=== PATIENT | female | born 1980 | race African-American/Black ===

== ENCOUNTER 2017-07-14 21:55 | Emergency (ER) | payer MEDICAID ==
[2017-07-15] MEDS ORDERED: HYDROCODONE/ACETAMINOPHEN 5-325 MG 6 TAB/DSPK PO PRN (01:36)
[2017-07-15] MEDS ORDERED: PREDNISONE 20 MG TABLET PO ONE (01:37)
[2017-07-15] MEDS ORDERED: CEPHALEXIN 500 MG CAPSULE PO ONE (01:37)
--- NOTE | 2017-07-15 01:41 | ER Document Report ---
ED General - General Chief Complaint: Insect Bite Stated Complaint: INSECT BITE Time Seen by Provider: 07/15/17 01:28 Notes: Patient is a 37-year-old female who presents with complaint of swelling and pain in her foot that radiates up her leg. Patient says yesterday she thinks something bit her on the foot when she was in bed. She said she had a severe pain between her second and third toes on her left foot. Over the course of the day the pain started gradually work its way up her leg and she developed some swelling in her foot that is now increasing up her leg. No fevers. No weakness. No recent infections. No other complaints at this time. No trauma. Patient is not diabetic. TRAVEL OUTSIDE OF THE [place] IN LAST 30 DAYS: No - Related Data Allergies/Adverse Reactions: No Known Allergies Allergy (Verified 07/14/17 22:24) Past Medical History - Social History Smoking Status: Unknown if Ever Smoked Frequency of alcohol use: None Drug Abuse: None Family History: Reviewed & Not Pertinent - Past Medical History Cardiac Medical History: Reports: Hx Hypertension Renal/ Medical History: Denies: Hx Peritoneal Dialysis Past Surgical History: Reports: Hx Orthopedic Surgery, Hx Tubal Ligation - Immunizations Hx Diphtheria, Pertussis, Tetanus Vaccination: - unknown Review of Systems - Review of Systems Notes: My Normal Review Basic REVIEW OF SYSTEMS: CONSTITUTIONAL : Denies fever, chills, or sweats. Denies recent illness. Cardiac: No chest pain Lungs: No shortness of breath. MUSCULOSKELETAL: Foot and leg pain and swelling.. SKIN: Denies rash or skin lesions. NEUROLOGICAL: Denies altered mental status or loss of consciousness. Denies headache. Denies weakness or paralysis or loss of use of either side. Denies problems with gait or speech. Denies sensory or motor loss. PSYCHIATRIC: Denies anxiety or stress or depression. ALL OTHER SYSTEMS REVIEWED AND NEGATIVE. Physical Exam - Vital signs Vitals: Temp Pulse Resp BP Pulse Ox 97.9 F 59 L 16 147/86 H 100 07/14/17 22:24 07/14/17 22:24 07/14/17 22:24 07/14/17 22:24 07/14/17 22:24 - Notes Notes: General Appearance: Well nourished, alert, cooperative, no acute distress, moderate obvious discomfort. Vitals: reviewed, See vital signs table. Extremities: strength 5/5 in all extremities, good pulses in all extremities, palpation of the dorsum of the left foot and also between the second and third toes. I do not see any redness or increasing warmth in the lower extremity or toes. She does have some pedal edema. I do not see an actual bite lizabeth., no edema. Skin: warm, dry, appropriate color, no rash Neuro: speech clear, oriented x 3, normal affect, responds appropriately to questions. Course - Re-evaluation Re-evalutation: 07/15/17 01:45 I informed the patient that I am not exactly sure of the cause of her pain/ edema. I told I do not suspect a DVT being that the pain initially was just between her second and third toes of her foot. This is not consistent all with the presentation of DVT. Since then she has had pain is work its way up her leg. She does have some edema in the foot itself. Not much edema in the leg itself. I will place her on prednisone in case this is due to an allergic reaction. We will also place her on Keflex. Right now I do not see evidence that this is necessarily infection; however, she does have some ascending pain in edema and therefore infection is still a possibility. Patient informed that she should return to the ER in 24 hours if her symptoms are not improving with prescribed medications. Patient encouraged to return to ER immediately if she has worsening of her symptoms, any redness or warmth to the leg, or she feels unwell. Patient agrees with plan and will be discharged home. Dictation of this chart was performed using voice recognition software; therefore, there may be some unintended grammatical errors. - Vital Signs Vital signs: Temp Pulse Resp BP Pulse Ox 97.9 F 59 L 16 147/86 H 100 07/14/17 22:24 07/14/17 22:24 07/14/17 22:24 07/14/17 22:24 07/14/17 22:24 Discharge - Discharge Clinical Impression: Foot pain, left, Foot swelling Condition: Good Disposition: HOME, SELF-CARE Instructions: Oral Narcotic Medication ([facility]) Additional Instructions: Please take the medications as prescribed. please return to the ER in 24 hours if you are not having improvement of your symptoms, if you have fevers, any redness or warmth to the leg, or if you feel that your symptoms are worsening. Prescriptions: Cephalexin Monohydrate [Keflex 500 mg Capsule] 500 mg PO QID #28 capsule Prednisone 10 mg PO ASDIR #42 tablet Forms: Return to Work
[2017-07-15 02:24] VITALS: BP 140/80
== END 2017-07-15 02:22 | disposition home or self-care (01) ==
LOC: ER 21:55
DX: M79.672 Pain in left foot (principal); M79.89 Other specified soft tissue disorders; I10 Essential (primary) hypertension
CPT/HCPCS: 99281; J7512

== ENCOUNTER → 2017-09-21 | Outpatient (CLI) | payer MEDICAID ==
[2017-09-21 15:02] LABS: CHLAM PCR NOT DETECTED (NOT DETECT)
== END ==
LOC: LAB 13:13
PROVIDERS: ATTEND Nurse Practitioner Acute Care
DX: N89.8 Other specified noninflammatory disorders of vagina (principal)
CPT/HCPCS: 87210; 87491; 87591

== ENCOUNTER 2017-12-11 13:48 | Emergency (ER) | payer MEDICAID ==
--- NOTE | 2017-12-11 15:48 | ER Document Report ---
HPI - HPI Pain Level: 4 Notes: Patient is a 37-year-old female with no significant past medical history presents ED complaining of left knee pain 3-4 days w. no known injury. Patient states that on occasion it feels like her knee wants to give out on her does not feel stable. Patient states that most of her pain is along the midline and underneath her patella. Patient states that she stands for long periods of time at work which does not help with her symptoms. Patient states the pain does not radiate and is described as a sharp/ache. She has not noticed any obvious redness or swelling. She has not noticed excessive warmth to the area. She has not been sick recently. Patient denies any drug allergies. Pt had one episode of dizziness at work 2 days ago, but nothing since then. No other concerns or complaints at this time. Denies any headache , fever, head injury, neck pain, URI, sore throat, chest pain, palpitations, syncope, cough, shortness of breath, wheeze, dyspnea, abdominal pain, nausea/ vomiting/diarrhea, urinary retention, dysuria, hematuria, loss of control of bowel or bladder, numbness/tingling, saddle anesthesia, muscle paralysis/ weakness, or rash. - ROS Notes: REVIEW OF SYSTEMS: CONSTITUTIONAL : Denies fever, chills, or sweats. Denies recent illness. EENT: Denies eye, ear, throat, or mouth pain or symptoms. Denies nasal or sinus congestion or discharge. Denies throat, tongue, or mouth swelling or difficulty swallowing. CARDIOVASCULAR: Denies chest pain. Denies palpitations or racing or irregular heart beat. Denies ankle edema. RESPIRATORY: Denies cough, cold, or chest congestion. Denies shortness of breath, difficulty breathing, or wheezing. GASTROINTESTINAL: Denies abdominal pain or distention. Denies nausea, vomiting , or diarrhea. Denies blood in vomitus, stools, or per rectum. Denies black, tarry stools. Denies constipation. GENITOURINARY: Denies difficulty urinating, painful urination, burning, frequency, blood in urine, or discharge. MUSCULOSKELETAL: see hpi SKIN: Denies rash, lesions or sores. NEUROLOGICAL: Denies confusion or altered mental status. Denies passing out or loss of consciousness. Denies dizziness or lightheadedness. Denies headache. Denies weakness or paralysis or loss of use of either side. Denies problems with gait or speech. Denies sensory loss, numbness, or tingling. Denies seizures. ALL OTHER SYSTEMS REVIEWED AND NEGATIVE. Dictation was performed using [employer] voice recognition software - REPRODUCTIVE Reproductive: DENIES: : Past Medical History - Social History Smoking Status: Never Smoker Family History: Reviewed & Not Pertinent - Past Medical History Cardiac Medical History: Reports: Hx Hypertension Renal/ Medical History: Denies: Hx Peritoneal Dialysis Past Surgical History: Reports: Hx Orthopedic Surgery, Hx Tubal Ligation - Immunizations Hx Diphtheria, Pertussis, Tetanus Vaccination: - unknown Vertical Provider Document - CONSTITUTIONAL Agree With Documented VS: Yes Notes: PHYSICAL EXAMINATION: GENERAL: Well-appearing, well-nourished and in no acute distress. A&Ox4 Musculoskeletal: Left knee: + small/mild jt effusion. no obvious erythema, warmth, or swelling noted. FROM to passive/active. Strength 5+/5. Sheeba negative. + tenderness to the joint line b/l. + tenderness with patellar grind test. Ligaments feel stable, but limited exam due to pt resistance. N/v intact distal. Extremities: No cyanosis, clubbing, or edema b/l. Peripheral pulses 2+. Capillary refill less than 3 seconds. NEUROLOGICAL: Normal speech, limping gait. Normal sensory, motor exams PSYCH: Normal mood, normal affect. SKIN: Warm, Dry, normal turgor, no rashes or lesions noted. - INFECTION CONTROL TRAVEL OUTSIDE OF THE [place] IN LAST 30 DAYS: No - RESPIRATORY O2 Sat by Pulse Oximetry: 99 Course - Re-evaluation Re-evalutation: 12/11/17 16:30 Patient is an afebrile, well-hydrated, 37-year-old female who presents to the ED with left knee pain, suspect inflammatory versus internal knee complication. Vitals are stable. PE is otherwise unremarkable for any neurovascular compress, obvious tendon/ligament rupture, obvious fracture/ dislocation, septic joint. X-ray was unremarkable for any acute pathology, but did show OA which correlates with exam and a jt effusion. Knee immobilizer provided low as well as crutches. She may use a knee immobilizer as needed and it may help her at work when she stands for long periods of time. Patient advised that she needs to bend her knees and walk around and exercise so that her blood pressure does not drop when she standing for long periods of time. I will send her home with a prescription for naproxen that she may use as needed. Advised recheck with orthopedics for further evaluation and management. Recheck with your PCM in 3-5 days as well. Return to the ED with any worsening/ concerning symptoms otherwise as reviewed in discharge. Patient is in agreement. - Vital Signs Vital signs: Temp Pulse Resp BP Pulse Ox 98.1 F 80 18 143/85 H 99 12/11/17 14:33 12/11/17 14:33 12/11/17 14:33 12/11/17 14:33 12/11/17 14:33 Discharge - Discharge Clinical Impression: Left knee pain Qualifiers: Chronicity: acute Qualified Code(s): M25.562 - Pain in left knee Condition: Stable Disposition: HOME, SELF-CARE Instructions: Use of Crutches ([facility]), Ice & Elevation ([facility]), Suspected Internal Knee Injury ([facility]), Knee Immobilizing Splint ([facility]) Additional Instructions: Rest, Ice, Compression, Elevation Use crutches/splint as directed Tylenol/ibuprofen as needed Light stretches daily Strength exercises as able Moist heat and massage may help F/u with your PCP in 3-5 days for a recheck Consider consult(s) with Orthopedics/physical therapy for ongoing/worsening symptoms Return to the ED with any worsening symptoms and/or development of fever, headache, chest pain, palpitations, syncope, shortness of breath, trouble breathing, abdominal pain, n/v/d, muscle weakness/paralysis, numbness/tingling, swelling, redness, or other worsening symptoms that are concerning to you. Prescriptions: Naproxen 500 mg PO BID PRN #30 tablet PRN Reason: Forms: Elevated Blood Pressure, Return to Work Referrals: [facility] ([facility]) [Provider Group] - Follow up in 3-5 days
--- NOTE | 2017-12-11 16:07 | RADIOLOGY REPORT (SQ) ---
EXAM DESCRIPTION: KNEE LEFT 4 VIEW COMPLETED DATE/TIME: 12/11/2017 3:52 pm REASON FOR STUDY: left knee pain COMPARISON: None. NUMBER OF VIEWS: Four views. TECHNIQUE: AP, lateral, and both oblique radiographic images acquired of the left knee. LIMITATIONS: None. FINDINGS: MINERALIZATION: Normal. BONES: No acute fracture or dislocation. No worrisome bone lesions. JOINT: Small suprapatellar knee joint effusion. Very mild patellofemoral and medial compartment join t space narrowing SOFT TISSUES: No soft tissue swelling. No radio-opaque foreign body. OTHER: No other significant finding. IMPRESSION: Knee joint effusion Patellofemoral and medial compartment joint space narrowing No acute fracture TECHNICAL DOCUMENTATION: JOB ID: [id number] [employer]- All Rights Reserved
[2017-12-11 16:44] VITALS: BP 141/88
== END 2017-12-11 16:44 | disposition home or self-care (01) ==
LOC: ER 13:48
DX: M25.562 Pain in left knee (principal); R42 Dizziness and giddiness; I10 Essential (primary) hypertension; Z98.51 Tubal ligation status
CPT/HCPCS: 99283; 73562; L1830

== ENCOUNTER 2017-12-16 22:19 | Emergency (ER) | payer MEDICAID ==
[2017-12-17 00:25] VITALS: BP 140/92
--- NOTE | 2017-12-17 01:13 | RADIOLOGY REPORT (SQ) ---
EXAM DESCRIPTION: SHOULDER RIGHT 2 OR MORE VIEWS CLINICAL HISTORY: pain COMPARISON: None. FINDINGS: 3 views of the right shoulder. No acute fracture or dislocation. Normal osseous mineralization. Calcifications adjacent to the greater tubercle of the humerus. This could be seen with calcific tendinitis/bursitis. Degenerative change of the acromioclavicular joint. No fracture visualized ribs. No pneumothorax in the visualized right lung. IMPRESSION: 1. No acute fracture or dislocation. 2. Possible calcific tendinitis/bursitis.
--- NOTE | 2017-12-17 01:41 | ER Document Report ---
ED Extremity Problem, Lower - General Chief Complaint: Knee Pain Stated Complaint: LEFT KNEE AND RIGHT ARM PAIN Time Seen by Provider: 12/17/17 01:19 Mode of Arrival: Ambulatory Information source: Patient TRAVEL OUTSIDE OF THE [place] IN LAST 30 DAYS: No - HPI Patient complains to provider of: Pain Location: Knee Occurred: Other - chronic Onset/Duration: Gradual Quality of pain: Achy Severity: Moderate Recent injury: No Notes: Patient arrives with complaints of right shoulder and left knee pain. 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 She was seen for her left knee pain within the last few weeks. She had x-rays here showing arthritis. She states that the knee brace that she was given seems to help some but she continues to have some pain. Over the last week she started having pain in the right shoulder. There is no traumatic injury. No fever, no redness, no numbness, tingling, weakness. She denies any chest pain or shortness of breath. No abdominal pain. No nausea, vomiting, diarrhea. No rashes. She denies any other complaints at this time. Pain is worse with movement, and better with rest. - Related Data Allergies/Adverse Reactions: No Known Allergies Allergy (Verified 12/17/17 01:14) Past Medical History - Social History Smoking Status: Current Every Day Smoker Frequency of alcohol use: None Drug Abuse: None Family History: Reviewed & Not Pertinent Patient has suicidal ideation: No Patient has homicidal ideation: No - Past Medical History Cardiac Medical History: Reports: Hx Hypertension Renal/ Medical History: Denies: Hx Peritoneal Dialysis Past Surgical History: Reports: Hx Orthopedic Surgery, Hx Tubal Ligation - Immunizations Hx Diphtheria, Pertussis, Tetanus Vaccination: - unknown Review of Systems - Review of Systems -: Yes All other systems reviewed and negative Physical Exam - Vital signs Vitals: Temp Pulse Resp BP Pulse Ox 97.7 F 73 20 140/92 H 100 12/17/17 00:24 12/17/17 00:24 12/17/17 00:24 12/17/17 00:12/17/17 00:24 - Notes Notes: GENERAL: alert, cooperative, nontoxic, no distress. HEAD: normocephalic, atraumatic EYES: conjunctiva pink without discharge, no external redness or swelling. EARS: no external swelling, no external redness NOSE: atraumatic, no external swelling MOUTH/THROAT: mucous membranes moist and pink NECK: soft, supple, full range of motion, no meningismus. CHEST: no distress, lungs clear and equal throughout. No wheezing, rales, rhonchi. CARDIAC: regular rate and rhythm, no murmur, normal capillary refill, normal pulses. BACK: full range of motion, no CVA tenderness. EXTREMITIES: Full range of motion of the left knee with tenderness to palpation of the anterior aspect of the knee. Slight joint effusion noted. No redness or increased heat to touch. No obvious ligament instability. Normal neurovascular exam distally with soft compartments. Ankle and hip are unremarkable. Tenderness to palpation of the right anterior shoulder with the biceps tendon is noted. Full range of motion. Normal strength and sensation with normal pulse distally. No redness or swelling. Elbow exam is normal. NEURO: alert and oriented 3, no focal deficits, full range of motion of all extremities. PYSCH: appropriate mood, affect. Patient is cooperative. SKIN: pink, warm, dry, no rash. Course - Re-evaluation Re-evalutation: 12/17/17 01:38 Patient is nontoxic appearing with stable vitals. The patient arrives with chronic knee and shoulder pain without injury. Her knee was x-rayed during her last visit a few weeks ago showing degenerative changes. X-rays of the right shoulder tonight show bursitis versus calcific tendinitis. Neurovascular she is intact. There is no signs of infection. Patient has a knee immobilizer which she wears and states that this makes her knee feel better. She is noted to have a small knee effusion at this time with no redness or signs of infection. Patient will be discharged home with instructions to wear her knee immobilizer as needed. Rest, ice, elevate her painful areas. She will be given a prescription for Naprosyn as well as Ultram and a referral to orthopedics. Instructed to follow-up sooner for increasing pain, high fever, numbness, tingling, weakness, any further concerns. The patient's emergency department workup and current diagnosis were explained to the patient and or family. Follow-up instructions were provided. Medications if prescribed were discussed. Instructions for when to return to the emergency department including specific worrisome symptoms were discussed with the patient and/or family. The patient is noted to have elevated blood pressure during today's emergency department visit. The patient was informed of this finding. The patient was instructed that this may be related to pre-hypertension and requires further evaluation with a primary care provider. The patient has no hypertensive symptoms at this time. - Vital Signs Vital signs: Temp Pulse Resp BP Pulse Ox 97.7 F 73 20 140/92 H 100 12/17/17 00:24 12/17/17 00:24 12/17/17 00:24 12/17/17 00:12/17/17 00:24 - Diagnostic Test Radiology reviewed: Image reviewed, Reports reviewed - Right shoulder with bursitis versus calcific tendinitis. No acute findings. Discharge - Discharge Clinical Impression: Calcific tendinitis Degenerative joint disease Qualifiers: Osteoarthritis location: knee Osteoarthritis type: unspecified Laterality: left Qualified Code(s): M17.12 - Unilateral primary osteoarthritis, left knee Condition: Stable Disposition: HOME, SELF-CARE Instructions: Ice & Elevation ([facility]), Oral Narcotic Medication ([facility]), Arthritis ([facility]), Tendonitis ([facility]) Additional Instructions: Take medications as prescribed. Wear your knee brace as needed. Rest, ice, elevate your sore areas. Follow-up with orthopedics at the next available appointment. Follow-up sooner for increased pain, fever, numbness, tingling, weakness, redness, any further concerns. Your blood pressure was elevated during today's visit. Have this rechecked with your doctor. The medication you were prescribed today may cause drowsiness. Do not drive or operate heavy machinery while taking this medication. Prescriptions: Naproxen [Naprosyn] 500 mg PO BID #20 tablet Tramadol HCl 50 mg PO TID PRN #10 tablet PRN Reason: Forms: Elevated Blood Pressure, Smoking Cessation Education, Return to Work Referrals: LUCINDA CULVER MD [ACTIVE STAFF] - Follow up as needed
== END 2017-12-17 01:47 | disposition home or self-care (01) ==
LOC: ER 22:19
DX: M65.20 Calcific tendinitis, unspecified site (principal); M17.12 Unilateral primary osteoarthritis, left knee; M25.562 Pain in left knee; M79.601 Pain in right arm; M25.511 Pain in right shoulder; F17.200 Nicotine dependence, unspecified, uncomplicated
CPT/HCPCS: 99283

== ENCOUNTER 2018-01-13 20:17 | Emergency (ER) | payer MEDICAID ==
[2018-01-14] MEDS ORDERED: DEXAMETHASONE SOD PHOS INJ 10 MG/1 ML VIAL IM ONE (01:42)
[2018-01-14] MEDS ORDERED: KETOROLAC TROMETHAMINE 60 MG/2 ML SDV IM ONE (01:42)
[2018-01-14] MEDS ORDERED: LIDOCAINE 5% (700 MG) TRANSDERMAL ADH..PATCH TP ONE (01:42)
[2018-01-14] MEDS ORDERED: CYCLOBENZAPRINE HCL 10 MG TABLET PO ONE (01:42)
--- NOTE | 2018-01-14 01:51 | ER Document Report ---
ED Neck/Back Problem - General Chief Complaint: Back Pain Stated Complaint: BACK PAIN, PAIN IN BOTH HANDS Time Seen by Provider: 01/14/18 01:09 Mode of Arrival: Ambulatory Information source: Patient Notes: 37-year-old female presented ED for complaint of back pain off and on for week. She states it was worse today. She states she took Aleve Thursday with no relief and did not take any pain medicine today she denies any radiation of pain down the legs. TRAVEL OUTSIDE OF THE [place] IN LAST 30 DAYS: No - HPI Patient complains to provider of: Lower back Onset: Other - Chronic with exacerbation of couple weeks ago off and on Onset: Chronic Timing: Waxing and waning Quality of pain: Sharp Severity: Moderate Pain Level: 3 Context: Lifting Recent injury: No Associated symptoms: Like prior neck/back pain, Lower back pain. denies: Chest pain, Abdominal pain, Chills, Constipation, Fever, Incontinence, Motor loss, Numbness/tingling, Radiation to arm, Radiation to chest, Radiation to leg, Sensory loss, Sweaty, Unable to urinate Exacerbated by: Movement of trunk Relieved by: Nothing Similar symptoms previously: Yes Recently seen / treated by doctor: No - Related Data Allergies/Adverse Reactions: No Known Allergies Allergy (Verified 12/17/17 01:14) Past Medical History - General Information source: Patient - Social History Smoking Status: Current Every Day Smoker Cigarette use (# per day): Yes - Half pack per day Chew tobacco use (# tins/day): No Smoking Education Provided: Yes - Woman is Frequency of alcohol use: Social Drug Abuse: None Occupation: Chief complaint Lives with: Family Family History: Arthritis, CVA, Hypertension, Malignancy. denies: CAD, COPD, DM , Hyperlipidemia, Thyroid Disfunction Patient has suicidal ideation: No Patient has homicidal ideation: No - Past Medical History Cardiac Medical History: Reports: Hx Hypertension Pulmonary Medical History: Reports: None EENT Medical History: Reports: None Neurological Medical History: Reports: None Endocrine Medical History: Reports: None Renal/ Medical History: Reports: None Malignancy Medical History: Reports: None GI Medical History: Reports: None Musculoskeltal Medical History: Reports Hx Arthritis, Reports Hx Musculoskeletal Deformity Skin Medical History: Reports None Psychiatric Medical History: Reports: None Traumatic Medical History: Reports: None Infectious Medical History: Reports: None Past Surgical History: Reports: Hx Orthopedic Surgery - feet, Hx Tubal Ligation - Immunizations Hx Diphtheria, Pertussis, Tetanus Vaccination: - unknown Review of Systems - Review of Systems Notes: Constitutional: [PRESENT: as per HPI. ABSENT: chills, fever(s), headache(s), weight gain, weight loss] Eyes: [ABSENT: visual disturbances] Ears: [ABSENT: hearing changes] Cardiovascular: [ABSENT: chest pain, dyspnea on exertion, edema, orthropnea, palpitations] Respiratory: [ABSENT: cough, hemoptysis] Gastrointestinal: [ABSENT: abdominal pain, constipation, diarrhea, hematemesis, hematochezia, nausea, vomiting] Genitourinary: [ABSENT: dysuria, hematuria] Musculoskeletal: Back pain no radiation down the legs or up back. Patient is the same as her chronic pain. She states that she has got worse so she came to the emergency room Integumentary: [ABSENT: rash, wounds] Neurological: [ABSENT: abnormal gait, abnormal speech, confusion, dizziness, focal weakness, syncope] Psychiatric: [ABSENT: anxiety, depression, homicidal ideation, suicidal ideation ] Endocrine: [ABSENT: cold intolerance, heat intolerance, menstrual abnormalities , polydipsia, polyuria] Hematologic/Lymphatic: [ABSENT: easy bleeding, easy bruising, lymphadenopathy] Physical Exam - Vital signs Vitals: Temp Pulse Resp BP Pulse Ox 98.6 F 79 20 145/93 H 100 01/13/18 20:31 18 20:31 01/13/18 20:31 18 20:31 18 20:31 - Notes Notes: PHYSICAL EXAMINATION: GENERAL: Well-appearing, well-nourished and in no acute distress. HEAD: Atraumatic, normocephalic. EYES: Pupils equal round and reactive to light, extraocular movements intact, conjunctiva are normal. ENT: Nares patent, oropharynx clear without exudates. Moist mucous membranes. NECK: Normal range of motion, supple without lymphadenopathy LUNGS: Breath sounds clear to auscultation bilaterally and equal. No wheezes rales or rhonchi. HEART: Regular rate and rhythm without murmurs ABDOMEN: Soft, nontender, nondistended abdomen. No guarding, no rebound. No masses appreciated. Female : deferred Musculoskeletal: Normal range of motion, no pitting or edema. No cyanosis. Patient had pain to her lower back bilaterally NEUROLOGICAL: Cranial nerves grossly intact. Normal speech, normal gait. Normal sensory, motor exams PSYCH: Normal mood, normal affect. SKIN: Warm, Dry, normal turgor, no rashes or lesions noted. Course - Re-evaluation Re-evalutation: 01/14/18 09:17 Patient denies any signs or symptoms of cauda equina, patient denied any loss of control of bowel bladder, loss control the lower extremities, any saddle anesthesia, or any loss of sensation to the legs. Patient denied any signs or symptoms of sciatica. She states it was just in her lower back on both sides. She denied any vertebral tenderness. Patient denied any injuries. - Vital Signs Vital signs: Temp Pulse Resp BP Pulse Ox 98.4 F 76 20 140/88 H 100 01/14/18 02:03 01/14/18 02:03 01/14/18 02:03 01/14/18 02:03 01/14/18 02:03 Discharge - Discharge Clinical Impression: Low back pain Qualifiers: Chronicity: chronic Back pain laterality: bilateral Sciatica presence: without sciatica Qualified Code(s): M54.5 - Low back pain; G89.29 - Other chronic pain; G89.29 - Other chronic pain Condition: Stable Disposition: HOME, SELF-CARE Additional Instructions: LOW BACK PAIN: Three out of every four people will have an episode of disabling back pain during their lifetime. Most commonly the pain is due to straining of the muscles and ligaments in the low back. Usual treatment includes: (1) Rest on a firm surface. Avoid lying on your stomach. (2) Ice pack the painful area. After a few days, gentle heat may be used intermittently to relax the area, or ice packs can be continued. (3) Medication may be needed -- muscle relaxers and antiinflammatory medicines are commonly used. (4) As the back improves, exercises are prescribed to strengthen the back and abdominal muscles. Your doctor will advise you on the proper care for your back at each stage in your recovery. You may be better in a few days -- or healing may take several weeks. If new symptoms of a "herniated disc" (radiation of pain, numbness, or tingling down the back of the leg or weakness in the leg) occur, you should be re-examined. Further testing may be necessary. Toradol Injection You have been given an injection of ketorolac tromethamine (Toradol). This is an excellent, safe drug for pain control. It also has potent antiinflammatory action. You should have significant pain relief within about one hour. Toradol is not addicting and is non-sedating. It does not interfere with driving or work. Call or return if you develop itching, hives, shortness of breath, or rash. Stretching Exercises for the Back The physician has recommended that you begin stretching exercises for your back. These are often used even while the back is painful. However, you should notify the physician if the activities seem to increase your pain. PELVIC TILT: Lie flat on your back with knees bent. Tighten your stomach and buttock muscles so it flattens your lower back against the floor. Hold 10 seconds. Repeat 10 times, twice daily. KNEE RAISE: Lying on the back with knees bent, raise one knee to your chest, then the other. Hold both knees against the chest 10 seconds, then lower one knee at a time. Repeat 10 times, twice daily. PARTIAL TRUNK RAISE: Lie face down, arms at your sides. Keeping your waist on the floor, use your arms raise your chest up. Support yourself on your elbows for 30 seconds. Repeat twice daily, increasing the time to two minutes as you recover. STEROID MEDICATION: You have been given an injection of medicine of the cortisone/steroid class. This medication is used to control inflammation or allergy. It is often continued as a pill for a short period of time, until the acute process subsides. There are usually no side effects from short-term use of cortisone-like medications. Some persons feel an increased sense of well-being and are not sleepy at bedtime. Long-term use of cortisone medications is best avoided, unless required for a severe condition. If your condition does not remit, or relapses after the course of corticosteroid medication, you should consult your physician. MUSCLE RELAXERS: Muscle relaxing medications are usually prescribed for acute muscle spasm or injury to the neck and back. They are often combined with antiinflammatory pain medication for increased relief. You may stop the muscle relaxer when the pain and stiffness have improved. Start the medication again if spasms recur. Muscle relaxers may cause drowsiness, especially with the first dose. Do not operate machinery or drive while under the effects of the medication. Most muscle relaxers last up to 24 hours. Do not combine the medication with alcohol. ICE PACKS: Apply ice packs frequently against the painful area. Many different schedules are recommended, such as "20 minutes on, 20 minutes off" or "one hour ice, two hours rest." If you need to work, you may need to go longer between ice treatments. You should plan to have the area ice packed AT LEAST one fourth of the time. The ice should be applied over the wrap, tape, or splint, or over a layer of cloth -- not directly against the skin. Some ice bags have a built-in cloth and can be put directly on the skin. WARM PACKS: After approximately two days, apply gentle heat (such as a heating pad or hot water bottle) for about 20 to 30 minutes about every two hours -- at least four times daily. Warmth and elevation will help you make a more rapid recovery , and will ease the pain considerably. Do not use HOT heat, and never apply heat for longer than 30 minutes. The continuous heat can invisibly damage skin and muscles -- even when no burn is seen on the surface. Damaged muscles can make you MORE sore. You have also been treated with a Lidoderm patch for your pain. Lidoderm patch is lidocaine. You can use [id number] Aspercreme lidocaine. This lidocaine patch needs to be removed after 12 hours. Then you can use the Aspercreme starting 12 hours after he removed the lidocaine patch. FOLLOW-UP CARE: If you have been referred to a physician for follow-up care, call the physician s office for an appointment as you were instructed or within the next two days. If you experience worsening or a significant change in your symptoms, notify the physician immediately or return to the Emergency Department at any time for re-evaluation. Prescriptions: Cyclobenzaprine HCl [Flexeril 10 mg Tablet] 10 mg PO TIDP PRN #15 tab PRN Reason: Forms: Elevated Blood Pressure, Return to Work Referrals: MARY JANE LUKE DO [Primary Care Provider] - Follow up as needed
[2018-01-14 02:16] VITALS: BP 140/88
== END 2018-01-14 02:03 | disposition home or self-care (01) ==
LOC: ER 20:17
DX: G89.29 Other chronic pain (principal); M54.5 Low back pain; I10 Essential (primary) hypertension; F17.210 Nicotine dependence, cigarettes, uncomplicated
CPT/HCPCS: 99283; 96372; J3490 ×2; J1885; J1100

== ENCOUNTER 2018-08-23 06:57 | Emergency (ER) | payer MEDICAID ==
--- NOTE | 2018-08-23 07:58 | EKG REPORT ---
SEVERITY:- NORMAL ECG - SINUS RHYTHM : Confirmed by: Amada Puentes 23-Aug-2018 07:57:54
[2018-08-23 08:38] LABS: ABSOLUTE BASOPHILS # (AUTO) 0.1 10^3/uL (0.0-0.2); ABSOLUTE EOSINOPHILS # (AUTO) 0.3 10^3/uL (0.0-0.6); ABSOLUTE LYMPHOCYTES (AUTO) 2.1 10^3/uL (0.5-4.7); ABSOLUTE MONOCYTES (AUTO) 0.6 10^3/uL (0.1-1.4); ABSOLUTE NEUT (AUTO) 3.6 10^3/uL (1.7-8.2); BASOPHILS % (AUTO) 1.2 % (0-2); HEMATOCRIT 37.1 % (36.0-47.0); HEMOGLOBIN 12.1 g/dL (12.0-15.5); LYMPHOCYTES % (AUTO) 31.3 % (13-45); MEAN CORPUSCULAR HEMOGLOBIN 27.3 pg (27.0-33.4); MEAN CORPUSCULAR HGB CONC 32.5 g/dL (32.0-36.0); MEAN CORPUSCULAR VOLUME 84 fl (80-97); MONOCYTES % (AUTO) 9.1 % (3-13); PLATELET COUNT 262 10^3/uL (150-450); RED BLOOD COUNT 4.42 10^6/uL (3.72-5.28); RED CELL DISTRIBUTION WIDTH 17.9 % (11.5-14.0); SEGMENTED NEUTROPHILS % (AUTO) 54.4 % (42-78); TOTAL CELLS COUNTED % (AUTO) 100 %; WHITE BLOOD COUNT 6.7 10^3/uL (4.0-10.5)
[2018-08-23 08:49] LABS: ALANINE AMINOTRANSFERASE 26 U/L (9-52); ALBUMIN 2.8 g/dL (3.5-5.0); ALKALINE PHOSPHATASE 29 U/L (38-126); ASPARTATE AMINO TRANSFERASE 20 U/L (14-36); BILIRUBIN,DIRECT 0.4 mg/dL (0.0-0.4); BILIRUBIN,TOTAL 0.4 mg/dL (0.2-1.3); BLOOD UREA NITROGEN 10 mg/dL (7-20); CALCIUM 8.4 mg/dL (8.4-10.2); CREATINE KINASE 150 U/L (30-135); GLUCOSE 77 mg/dL (75-110); POTASSIUM 4.3 mmol/L (3.6-5.0); TOTAL PROTEIN 5.3 g/dL (6.3-8.2)
--- NOTE | 2018-08-23 08:51 | RADIOLOGY REPORT (SQ) ---
EXAM DESCRIPTION: CHEST SINGLE VIEW COMPLETED DATE/TIME: 08/23/2018 7:53 am REASON FOR STUDY: db pt in lobby/pit COMPARISON: 09/13/2014 EXAM PARAMETERS: NUMBER OF VIEWS: One view. TECHNIQUE: Single frontal radiographic view of the chest acquired. RADIATION DOSE: NA LIMITATIONS: None. FINDINGS: LUNGS AND PLEURA: No opacities, masses or pneumothorax. No pleural effusion. MEDIASTINUM AND HILAR STRUCTURES: No masses. Contour normal. HEART AND VASCULAR STRUCTURES: Heart normal in size. Normal vasculature. BONES: No acute findings. HARDWARE: None in the chest. OTHER: No other significant finding. IMPRESSION: 1. No significant interval changes since the prior examination dated 09/13/2014. No ac pipe findings. TECHNICAL DOCUMENTATION: JOB ID: [id number] [employer]- All Rights Reserved Reading location - IP/workstation name: [email or web address]
[2018-08-23 08:54] LABS: CARBON DIOXIDE 29 mmol/L (22-30); CHLORIDE 109 mmol/L (98-107); SODIUM 138.4 mmol/L (137-145)
[2018-08-23 09:02] LABS: CREATINE KINASE MB 1.62 ng/mL (<4.55)
[2018-08-23 09:03] LABS: ANION GAP 0 (5-19)
[2018-08-23 09:04] LABS: TROPONIN I < 0.012 ng/mL
[2018-08-23 09:34] LABS: APPEARANCE,URINE CLEAR; BILIRUBIN,URINE NEGATIVE (NEGATIVE); COLOR,URINE STRAW; GLUCOSE, URINE NEGATIVE (NEGATIVE); KETONES,URINE NEGATIVE (NEGATIVE); LEUKOCYTE ESTERASE,URINE MODERATE (NEGATIVE); NITRITE,URINE NEGATIVE (NEGATIVE); PROTEIN,URINE NEGATIVE (NEGATIVE); URINE SPECIFIC GRAVITY 1.009; UROBILINOGEN,URINE NEGATIVE mg/dL (<2.0)
--- NOTE | 2018-08-23 10:08 | ER Document Report ---
ED General - General Chief Complaint: Shortness Of Breath Stated Complaint: SHORTNESS OF BREATH Time Seen by Provider: 08/23/18 09:27 TRAVEL OUTSIDE OF THE [place] IN LAST 30 DAYS: No - HPI Notes: Patient is a 38-year-old female that presents to the emergency department for chief complaint of lower extremity edema and shortness of breath. Patient has had increased lower extremity edema over the past few days but notes she has been swelling for a few weeks. She denies any injury or trauma. She states it is mildly painful around her ankles when the swelling gets severe. Yesterday she began feeling short of breath. She was seen at an urgent care who referred her to the emergency room for further workup yesterday , she did not come yesterday she came today. Patient also endorses a left parasternal chest pain. She states it is sharp and lasts for 1 second at a time. It is completely resolved after 1 second. There are no associated symptoms. The pain is nonradiating. She denies any aggravating or relieving factors to her pain. She denies any history of cardiac disease in the past. She denies any family history of cardiac disease, DVT or PE. She denies any recent surgery, travel, immobilizations and control. Past Medical History: Arthritis Past Surgical History: Negative Social History: Daily tobacco, denies drugs and alcohol Family History: Reviewed and noncontributory for presenting illness Allergies: Reviewed, see documented allergy list. REVIEW OF SYSTEMS: CONSTITUTIONAL : No fever No chills No diaphoresis No recent illness EENT: No vision changes No congestion No sore throat CARDIOVASCULAR: chest pain No palpitations RESPIRATORY: shortness of breath No cough No difficulty breathing GASTROINTESTINAL: No abdominal pain No nausea No vomiting No diarrhea GENITOURINARY: No dysuria No hematuria No difficulty urinating MUSCULOSKELETAL: No back pain No leg pain No arm pain Peripheral edema SKIN: No rashes No lesions LYMPHATIC: No swollen, enlarged glands. NEUROLOGICAL: No lightheadedness No headache No weakness No paresthesias PSYCHIATRIC: No anxiety No depression PHYSICAL EXAMINATION: Vital signs reviewed, nursing noted reviewed. GENERAL: Well-appearing, well-nourished and in no acute distress. HEAD: Atraumatic, normocephalic. EYES: Eyes appear normal, extraocular movements intact, sclera anicteric, conjunctiva are normal. ENT: nares patent, oropharynx clear without exudates. Moist mucous membranes. NECK: Normal range of motion, supple without lymphadenopathy LUNGS: Breath sounds clear to auscultation bilaterally and equal. No wheezes rales or rhonchi. HEART: Regular rate and rhythm without murmurs ABDOMEN: Soft, nontender, normoactive bowel sounds. No rebound, guarding, or rigidity. No masses appreciated. EXTREMITIES: Nontender, good range of motion +2 pitting edema bilateral lower extremities, symmetric. No calf tenderness. NEUROLOGICAL: No focal neurological deficits. Moves all extremities spontaneously Motor and sensory grossly intact on exam. PSYCH: Normal mood, normal affect. SKIN: Warm, Dry, normal turgor, no rashes or lesions noted on exposed skin - Related Data Allergies/Adverse Reactions: No Known Allergies Allergy (Verified 08/23/18 08:02) Past Medical History - Social History Smoking Status: Current Every Day Smoker Chew tobacco use (# tins/day): No Frequency of alcohol use: Occasional Drug Abuse: None Family History: Arthritis, CVA, Hypertension, Malignancy. denies: CAD, COPD, DM , Hyperlipidemia, Thyroid Disfunction Patient has suicidal ideation: No Patient has homicidal ideation: No - Past Medical History Cardiac Medical History: Reports: Hx Hypertension Pulmonary Medical History: Reports: Hx Asthma Renal/ Medical History: Denies: Hx Peritoneal Dialysis Musculoskeletal Medical History: Reports Hx Arthritis, Reports Hx Musculoskeletal Deformity Past Surgical History: Reports: Hx Orthopedic Surgery - feet, Hx Tubal Ligation - Immunizations Hx Diphtheria, Pertussis, Tetanus Vaccination: - unknown Review of Systems - Review of Systems Notes: Dictated Physical Exam - Vital signs Vitals: Temp Pulse Resp BP Pulse Ox 97.6 F 80 18 123/81 99 08/23/18 07:06 08/23/18 07:06 08/23/18 07:06 08/23/18 07:06 08/23/18 07:06 - Notes Notes: Dictated Course - Re-evaluation Re-evalutation: 08/23/18 10:07 Vitals reviewed. Nursing notes reviewed. Patient awake and in no acute distress. She is not having any chest pain currently. Her chest pain lasts for 1 second and then is completely resolved. I do not suspect ACS. EKG shows no ischemia and her troponin is normal. Chest x-ray shows no acute pulmonary process. Laboratory 08/23/18 08/23/18 08/23/18 08:27 08:27 08:27 WBC 6.7 RBC 4.42 Hgb 12.1 Hct 37.1 MCV 84 MCH 27.3 MCHC 32.5 RDW 17.9 H Plt Count 262 Seg Neutrophils % 54.4 Lymphocytes % 31.3 Monocytes % 9.1 Eosinophils % 4.0 Basophils % 1.2 Absolute Neutrophils 3.6 Absolute Lymphocytes 2.1 Absolute Monocytes 0.6 Absolute Eosinophils 0.3 Absolute Basophils 0.1 Sodium 138.4 Potassium 4.3 Chloride 109 H Carbon Dioxide 29 Anion Gap 0 L BUN 10 Creatinine 0.63 Est GFR ( Amer) > 60 Est GFR (Non-Af Amer) > 60 Glucose 77 Calcium 8.4 Total Bilirubin 0.4 Direct Bilirubin 0.4 Neonat Total Bilirubin Not Reportable Neonat Direct Bilirubin Not Reportable Neonat Indirect Bili Not Reportable AST 20 ALT 26 Alkaline Phosphatase 29 L Creatine Kinase 150 H CK-MB (CK-2) 1.62 Troponin I < 0.012 Total Protein 5.3 L Albumin 2.8 L Urine Color Urine Appearance Urine pH Ur Specific [place] Urine Protein Urine Glucose (UA) Urine Ketones Urine Blood Urine Nitrite Urine Bilirubin Urine Urobilinogen Ur Leukocyte Esterase Urine WBC (Auto) Urine RBC (Auto) Urine Bacteria (Auto) Squamous Epi Cells Auto Urine Mucus (Auto) Urine Ascorbic Acid 08/23/18 09:10 WBC RBC Hgb Hct MCV MCH MCHC RDW Plt Count Seg Neutrophils % Lymphocytes % Monocytes % Eosinophils % Basophils % Absolute Neutrophils Absolute Lymphocytes Absolute Monocytes Absolute Eosinophils Absolute Basophils Sodium Potassium Chloride Carbon Dioxide Anion Gap BUN Creatinine Est GFR ( Amer) Est GFR (Non-Af Amer) Glucose Calcium Total Bilirubin Direct Bilirubin Neonat Total Bilirubin Neonat Direct Bilirubin Neonat Indirect Bili AST ALT Alkaline Phosphatase Creatine Kinase CK-MB (CK-2) Troponin I Total Protein Albumin Urine Color STRAW Urine Appearance CLEAR Urine pH 8.0 Ur Specific [place] 1.009 Urine Protein NEGATIVE Urine Glucose (UA) NEGATIVE Urine Ketones NEGATIVE Urine Blood NEGATIVE Urine Nitrite NEGATIVE Urine Bilirubin NEGATIVE Urine Urobilinogen NEGATIVE Ur Leukocyte Esterase MODERATE H Urine WBC (Auto) 7 Urine RBC (Auto) 1 Urine Bacteria (Auto) 1+ Squamous Epi Cells Auto 5 Urine Mucus (Auto) RARE Urine Ascorbic Acid NEGATIVE 08/23/18 11:51 Show moderate leukocytes and she now states that she has had increased urination for the past 3 days. She will be treated for urinary tract infection with Keflex. Ultrasound of her lower extremities are negative for acute DVT. She is not in congestive heart failure and is oxygenating well on room air. She will be discharged home in stable condition with close follow-up at her primary care doctor's office. Patient in agreement with the plan. Chest X-Ray 08/23/18 07:41 IMPRESSION: 1. No significant interval changes since the prior examination dated 09/13/2014. No acute findings. - Vital Signs Vital signs: Temp Pulse Resp BP Pulse Ox 97.6 F 80 11 L 115/80 97 08/23/18 07:06 08/23/18 07:06 08/23/18 11:00 08/23/18 09:01 08/23/18 10:00 - Laboratory Result Diagrams: 08/23/18 08:27 08/23/18 08:27 Laboratory results interpreted by me: 08/23/18 08/23/18 08/23/18 08:27 08:27 09:10 RDW 17.9 H Chloride 109 H Anion Gap 0 L Alkaline Phosphatase 29 L Creatine Kinase 150 H Total Protein 5.3 L Albumin 2.8 L Ur Leukocyte Esterase MODERATE H - EKG Interpretation by Me Additional EKG results interpreted by me: 08/23/18 10:06 0 835: Sinus bradycardia, rate 51, no ectopy, normal axis, no ST elevation, new bradycardia otherwise unchanged from 08/23/18 Discharge - Discharge Clinical Impression: Peripheral edema, Shortness of breath Chest pain Qualifiers: Chest pain type: unspecified Qualified Code(s): R07.9 - Chest pain, unspecified UTI (urinary tract infection) Qualifiers: Urinary tract infection type: acute cystitis Hematuria presence: without hematuria Qualified Code(s): N30.00 - Acute cystitis without hematuria Condition: Stable Disposition: HOME, SELF-CARE Instructions: Chest Pain of Unclear Cause ([facility]), Dependent Edema ([facility]), Urinary Tract Infection ([facility]) Additional Instructions: Please return to the emergency department if you have any worsening, or concern of your symptoms. Please return to the emergency department if you develop chest pain, difficulty breathing, severe abdominal pain, or ongoing vomiting. Please follow-up with your primary care physician in 2-3 days and any other recommended physicians. If prescribed, take all medications as directed. If you have any questions or concerns do not hesitate to return the emergency department for evaluation. [] Prescriptions: Cephalexin Monohydrate [Keflex 500 mg Capsule] 500 mg PO Q6H 5 Days capsule Forms: Return to Work Referrals: MARY JANE LUKE DO [Primary Care Provider] - Follow up in 3-5 days
[2018-08-23 12:08] VITALS: BP 115/80
--- NOTE | 2018-08-23 12:19 | RADIOLOGY REPORT (SQ) ---
EXAM DESCRIPTION: VENOUS BILATERAL LOWER COMPLETED DATE/TIME: 08/23/2018 12:09 pm REASON FOR STUDY: edema COMPARISON: None. TECHNIQUE: Dynamic and static chance scale and color images acquired of both lower extremity venous sy stems. Selected spectral images acquired with additional compression and augmentation maneuvers. Imag es stored on PACS. LIMITATIONS: None. FINDINGS: RIGHT LEG COMMON FEMORAL AND FEMORAL: Normal phasicity, compression and augmentation. No visualized echogenic m aterial on chance scale. No defects on color images. POPLITEAL: Normal compression and augmentation. No visualized echogenic material on chance scale. No de fects on color images. CALF VESSELS: Normal compression and augmentation. No visualized echogenic material on chance scale. No defects on color image. GSV AND SSV: Normal compression. No visualized echogenic material on chance scale. No defects on color images. ANY DEEP VENOUS INSUFFICIENCY: Not evaluated. ANY EVIDENCE OF POPLITEAL CYST: No. OTHER: No other significant finding. LEFT LEG COMMON FEMORAL AND FEMORAL: Normal phasicity, compression and augmentation. No visualized echogenic m aterial on chance scale. No defects on color images. POPLITEAL: Normal compression and augmentation. No visualized echogenic material on chance scale. No de fects on color images. CALF VESSELS: Normal compression and augmentation. No visualized echogenic material on chance scale. No defects on color images. GSV AND SSV: Normal compression. No visualized echogenic material on chance scale. No defects on color images. ANY DEEP VENOUS INSUFFICIENCY: Not evaluated. ANY EVIDENCE POPLITEAL CYST: No. OTHER: No other significant finding. IMPRESSION: NO EVIDENCE DVT OR SVT IN EITHER LEG. TECHNICAL DOCUMENTATION: JOB ID: [id number] [email or web address]- All Rights Reserved Reading location - IP/workstation name: [email or web address]
--- NOTE | 2018-08-23 16:08 | EKG REPORT ---
SEVERITY:- NORMAL ECG - SINUS RHYTHM : Confirmed by: Amada Puentes 23-Aug-2018 16:06:55
== END 2018-08-23 12:08 | disposition home or self-care (01) ==
LOC: ER 06:57
DX: N30.00 Acute cystitis without hematuria (principal); R60.0 Localized edema; J45.909 Unspecified asthma, uncomplicated; R06.02 Shortness of breath; R07.9 Chest pain, unspecified; F17.200 Nicotine dependence, unspecified, uncomplicated; I10 Essential (primary) hypertension; R00.1 Bradycardia, unspecified
CPT/HCPCS: 36415; 71045; 80053; 81001; 82550; 82553; 84484; 85025; 93005; 93010; 93970; 99285

== ENCOUNTER 2019-09-21 22:34 | Emergency (ER) | payer MEDICAID, OTHER ==
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
[2019-09-22] MEDS ORDERED: KETOROLAC TROMETHAMINE 60 MG/2 ML SDV IM ONE (05:02)
[2019-09-22] MEDS ORDERED: METHOCARBAMOL 750 MG TABLET PO ONE (05:02)
[2019-09-22 05:27] LABS: APPEARANCE,URINE SLIGHTLY-CLOUDY; BILIRUBIN,URINE NEGATIVE (NEGATIVE); COLOR,URINE YELLOW; GLUCOSE, URINE NEGATIVE (NEGATIVE); KETONES,URINE NEGATIVE (NEGATIVE); PROTEIN,URINE NEGATIVE (NEGATIVE); URINE SPECIFIC GRAVITY 1.018
[2019-09-22 06:04] LABS: ABSOLUTE BASOPHILS # (AUTO) 0.1 10^3/uL (0.0-0.2); ABSOLUTE EOSINOPHILS # (AUTO) 0.3 10^3/uL (0.0-0.6); ABSOLUTE LYMPHOCYTES (AUTO) 2.9 10^3/uL (0.5-4.7); ABSOLUTE MONOCYTES (AUTO) 0.9 10^3/uL (0.1-1.4); BASOPHILS % (AUTO) 1.9 % (0-2); EOSINOPHILS % (AUTO) 3.8 % (0-6); HEMATOCRIT 30.5 % (36.0-47.0); HEMOGLOBIN 10.1 g/dL (12.0-15.5); LYMPHOCYTES % (AUTO) 39.8 % (13-45); MEAN CORPUSCULAR HEMOGLOBIN 28.1 pg (27.0-33.4); MEAN CORPUSCULAR VOLUME 85 fl (80-97); MONOCYTES % (AUTO) 12.5 % (3-13); PLATELET COUNT 223 10^3/uL (150-450); RED BLOOD COUNT 3.58 10^6/uL (3.72-5.28); RED CELL DISTRIBUTION WIDTH 15.5 % (11.5-14.0); TOTAL CELLS COUNTED % (AUTO) 100 %; WHITE BLOOD COUNT 7.2 10^3/uL (4.0-10.5)
[2019-09-22 06:29] LABS: ALBUMIN 3.1 g/dL (3.5-5.0); ALKALINE PHOSPHATASE 37 U/L (38-126); ASPARTATE AMINO TRANSFERASE 21 U/L (14-36); BILIRUBIN,DIRECT 0.1 mg/dL (0.0-0.4); BILIRUBIN,TOTAL 0.4 mg/dL (0.2-1.3); BLOOD UREA NITROGEN 10 mg/dL (7-20); CALCIUM 8.5 mg/dL (8.4-10.2); CARBON DIOXIDE 25 mmol/L (22-30); CHLORIDE 111 mmol/L (98-107); GLUCOSE 83 mg/dL (75-110); POTASSIUM 3.7 mmol/L (3.6-5.0); TOTAL PROTEIN 5.8 g/dL (6.3-8.2)
[2019-09-22 06:38] LABS: ANION GAP 4 (5-19)
[2019-09-22 07:31] VITALS: BP 121/60
--- NOTE | 2019-09-22 07:36 | EKG REPORT ---
SEVERITY:- OTHERWISE NORMAL ECG - SINUS BRADYCARDIA : Confirmed by: Ajith Ballard MD 22-Sep-2019 07:36:10
== END 2019-09-22 07:32 | disposition home or self-care (01) ==
LOC: ER 22:34
DX: R52 Pain, unspecified (principal); V43.52XA Car driver injured in collision with other type car in traffic accident, initial encounter; Y93.89 Activity, other specified; R55 Syncope and collapse; R00.1 Bradycardia, unspecified; F17.200 Nicotine dependence, unspecified, uncomplicated; I10 Essential (primary) hypertension; J45.909 Unspecified asthma, uncomplicated
CPT/HCPCS: 93005; 99283; 96372; 36415; 87086; 85025; 80053; 81001; 93010; J1885; J3490